=== PATIENT | male | born 1960 | race Caucasian/White ===

== ENCOUNTER 2020-04-11 14:37 | Inpatient (IN) | payer MEDICAID ==
[~2020-04-11] VITALS: Ht 175.3 cm; Wt 104.4 kg
[2020-04-11] VITALS (12 sets, daily range): BP systolic 122–186; BP diastolic 88–121; BMI 25.2
--- NOTE | 2020-04-11 14:37 | NUR ---
ARRIVED BIB, IMMED TO CT. THEN RTND TO T3. A/OX3. SPEECH SLIGHTLY SLURRED AND LEFT FACIAL DROOP NOTED. FSBS= 112 MG/DL
[2020-04-11] MEDS ORDERED: DOLOPHINE HCL5 MG PO (14:51)
[2020-04-11] MEDS ORDERED: KLONOPIN1 MG PO (14:51)
[2020-04-11] MEDS ORDERED: OXYCONTIN10 MG PO (14:52)
[2020-04-11] MEDS ORDERED: RESTORIL15 MG PO (14:52)
[2020-04-11 14:56] LABS: BASOPHILS 0.1 % (0-2); EOSINOPHILS 0.5 % (0-7); HEMATOCRIT 43.8 % (42.0-54.0); HEMOGLOBIN 14.3 g/dL (13.5-17.5); IMMATURE GRANULOCYTES 0.2 % (0-5); LYMPHOCYTES 17.8 % (15-50); MCH 29.2 pg (26.0-34.0); MCHC 32.6 g/dL (31.0-37.0); MCV 89.6 fL (80.0-100.0); MEAN PLATELET VOLUME 9.4 fL (7.4-10.4); MONOCYTES 6.1 % (2-11); NEUTROPHILS 75.3 % (40-80); PLATELET COUNT 421 10x3/uL (130-400); RBC 4.89 10x6/uL (4.20-6.10); RDW 13.3 % (11.5-14.5)
[2020-04-11 15:08] LABS: CALC OSMOLALITY 281 mosm/kg (275-300); CALCIUM 9.6 mg/dL (8.5-10.1); CARBON DIOXIDE 26.4 mmol/L (21.0-32.0); CHLORIDE - SERUM 103 mmol/L (98-107); CREATININE - SERUM 1.3 mg/dL (0.6-1.3); GLUCOSE 110 mg/dL (74-106); POTASSIUM - SERUM 3.7 mmol/L (3.5-5.1); SODIUM 141 mmol/L (136-145); UREA NITROGEN 12 mg/dL (7-18); eGFR NON AFRICAN AMERICAN 60 mL/min (90-120)
[2020-04-11 15:14] LABS: APTT 30.7 SECONDS (22.8-39.4); INR 1.01 (0.85-1.17); PROTIME 13.2 SECONDS (11.6-15.0)
[2020-04-11 15:29] LABS: ALKALINE PHOSPHATASE 119 U/L (30-120); ALT (SGPT) 32 U/L (10-68); BILIRUBIN - TOTAL 0.29 mg/dL (0.2-1.3); CKMB 6.2 U/L (0.0-3.6); CREATINE KINASE 557 UL (21-232); MAGNESIUM - SERUM 1.9 mg/dL (1.8-2.4); PROTEIN - SERUM 8.1 g/dL (6.4-8.2); THYROID STIMULATING HORMONE 0.74 uIU/mL (0.36-3.74); TROPONIN-I < 0.017 ng/mL (0.000-0.060)
--- NOTE | 2020-04-11 17:09 | NUR ---
PT C/O BACK PAIN REQUESTING HIS HOME MEDS: OXYCODONE AND METHADONE. DR CARRIE DEL VALLE
--- NOTE | 2020-04-11 17:14 | NUR ---
DR BUTLER CALLED BACK: NEW ORDERS RCVD
--- NOTE | 2020-04-11 17:45 | NUR ---
REPORT TO MARCELO HEADLEY
--- NOTE | 2020-04-11 17:55 | NUR ---
ADMIT TO ROOM # CVICU 08, CONDITION STABLE
[2020-04-11] MEDS ORDERED: ZANAFLEX4 MG PO (18:02)
[2020-04-11] MEDS ORDERED: AMBIEN5 MG PO (18:03)
[2020-04-11] MEDS ORDERED: PAXIL20 MG PO (18:04)
--- NOTE | 2020-04-11 18:14 | NUR ---
1800 PT RECIEVED TO ROOM ALERT AND ORIENTED LUE AND LLE FLACCID, UNABLE TO MOVE BUT STATES ABLE TO FEEL STIMULI, L SIDE OF FACE DROOPING NOTED, DENIES ALL NEEDS, ATTACHED TO MONITORING EQUIPMENT, NS75 ML/HR INFUSING, AT BEDSIDE AND SECURITY CODE PROVIDED, CALL LIGHT WITHIN REACH
--- NOTE | 2020-04-11 19:30 | NUR ---
PT A/OX4, SPOUSE PRESENT AT BEDSIDE, LEFT SIDE FACIAL DROOP NOTED, LEFT ARM AND HAND FLACCID, LEFT LEG WEAK, USES URINAL, LEFT FA PIV INTACT WITH IVF'S INFUSING, PT ASKING WHEN DR SETHI WILL BE HERE, NO DISTRESS NOTED
--- NOTE | 2020-04-11 23:10 | NUR ---
DR SETHI @ BEDSIDE TALKING WITH PT
[2020-04-12] VITALS (14 sets, daily range): BP systolic 94–163; BP diastolic 43–103; BMI 25.5
--- NOTE | 2020-04-12 02:27 | NUR ---
PT SLEEPING SOUNDLY WITH NO DISTRESS NOTED, AROUSES EASILY, VITALS STABLE
[2020-04-12 06:24] LABS: ALBUMIN 3.6 g/dL (3.4-5.0); ANION GAP 8.6 mmol/L (8-16); BILIRUBIN - TOTAL 0.5 mg/dL (0.2-1.3); CALCIUM 8.5 mg/dL (8.5-10.1); CARBON DIOXIDE 30.9 mmol/L (21.0-32.0); CREATININE - SERUM 1.1 mg/dL (0.6-1.3); POTASSIUM - SERUM 3.5 mmol/L (3.5-5.1); PROTEIN - SERUM 7.2 g/dL (6.4-8.2)
[2020-04-12 06:25] LABS: BASOPHILS 0.2 % (0-2); EOSINOPHILS 2.2 % (0-7); HEMATOCRIT 42.9 % (42.0-54.0); HEMOGLOBIN 13.7 g/dL (13.5-17.5); IMMATURE GRANULOCYTES 0.3 % (0-5); MCH 28.9 pg (26.0-34.0); MCHC 31.9 g/dL (31.0-37.0); MCV 90.5 fL (80.0-100.0); MEAN PLATELET VOLUME 9.4 fL (7.4-10.4); MONOCYTES 9.1 % (2-11); NEUTROPHILS 57.2 % (40-80); PLATELET COUNT 348 10x3/uL (130-400); RBC 4.74 10x6/uL (4.20-6.10); RDW 13.6 % (11.5-14.5)
--- NOTE | 2020-04-12 07:00 | NUR ---
REPORT RECIEVED FROM THE OFF GOING RN. SEE ASSESSMENT IN THE PTS FLOW SHEET. PT A&O X4. SLURRED SPEACH NOTED. LEFT SIDED PARESIS NOTED. LEFT FACIAL DROOP AND LEFT TOUNGE DEVIATION NOTED. PT BARLEY WIGGLES LEFT TOES ON COMMANDS AND UNABLE TO MOVE LEFT HAND ON COMMAND. WHENEVER TALKING WITH THE PT, PT WILL YAWN AND PT PICKS UP HIS LEFT HAND WITHOUT HIM KNOWING IT. PT ABLE TO FEEL THE LEFT SIDE OF HIS BODY. VSS. CALL LIGHT IN REACH. WILL CONT POC.
[2020-04-12 07:05] LABS: WBC 6.3 10x3/uL (4.8-10.8)
--- NOTE | 2020-04-12 08:24 | NUR ---
DR PARK BRIM STIFFENER IN THE UNIT. ST EVALUATION.
--- NOTE | 2020-04-12 09:34 | NUR ---
ASPIRATION PRECAUTIONS IMPLEMENTED. HOB ELEVATED 90 DEGREES AND PO WATER THICKEN. PT TOOK PO FLUIDS AND PILLS WITH NO S/SX OF DYSPAGIA NOTED. NO COUGHING NOTED. WILL KEEP NPO UNTIL ST NICOLASA PT.
--- NOTE | 2020-04-12 10:23 | NUR ---
SPEACH THERAPY IN THE PTS ROOM.
--- NOTE | 2020-04-12 11:13 | NUR ---
OCCUPATION THEARPY AT THE PTS BEDSIDE.
--- NOTE | 2020-04-12 11:29 | NUR ---
PT ASKED IF HE COULD USE HIS VAP OUTSIDE. I EXPLAINED TO THE PATIENT THAT HE IS IN THE ICU AND IT IS INAPPROPRIATE TO VAP IN THE UNIT AND THAT I AM NOT ABLE TO WHEEL HIM OUTSIDE. PT UNDERSTANDS.
--- NOTE | 2020-04-12 12:10 | NUR ---
ASPIRATION PRECAUTIONS TAKEN. HOB ELEAVATED TO 90 DEGREES. PT TOLERATING MECH SOFT AND HONEY THICK LIQUIDS WELL WITH NO DYSPAGIA NOTED. VSS. CALL LIGHT IN REACH. WILL CONT OPC.
--- NOTE | 2020-04-12 12:27 | NUR ---
DR OLSEN AT THE PTS [facility]. OK TO TRANSFER OUT OF THE UNIT BY HIS STANDPOINT.
--- NOTE | 2020-04-12 15:15 | NUR ---
1300 ASKED FPR A DRINK REMINDED HIM HE IS REQUIRED TO DRINK HONEY THICK LIQUIDS FIXED HIM A GLASS OF THICKENED WATER
--- NOTE | 2020-04-12 15:16 | NUR ---
1400 VISITING AT BEDSIDE
--- NOTE | 2020-04-12 15:17 | NUR ---
1500 CALL FOR PAIN MED WITH BACK PAIN 04/14 GAVE PATIENT HIS SCHEDULED KLONIPIN AND OXYCONTIN PO
[2020-04-12 17:12] LABS: UDS - AMPHET NEGATIVE QUAL (NEGATIVE); UDS - BARB NEGATIVE QUAL (NEGATIVE); UDS - BENZO NEGATIVE QUAL (NEGATIVE); UDS - COCAINE NEGATIVE QUAL (NEGATIVE); UDS - OPIATE POSITIVE QUAL (NEGATIVE); UDS - PCP NEGATIVE QUAL (NEGATIVE); UDS - THC NEGATIVE QUAL (NEGATIVE)
--- NOTE | 2020-04-12 23:25 | NUR ---
ESE ENRIQUEZ APRN PAGED, RETURNED CALL. REQUEST TO START PT AMBIEN WITH HE TAKES AT HOME. PT RECEIVED SCHEDULED MEDICATIONS INCLUDING KLONOPIN, METHADONE, AND OXYCONTIN. PT STATES HE NEEDS SOMETHING TO HELP HIM SLEEP AND WAS GETTING ANXIOUS. ESE STATES THAT SHE NEEDED TO VARIFY REQUEST WITH DR OLSEN, ORDER RECEIVED. MEDICATION GIVEN, TOLERATED WELL. IV TO RIGHT FOREARM REMOVED DUE TO COMPLAINT OF SORENESS AND REDNESS. CALL LIGHT IN REACH. WILL CONTINUE TO OBSERVE.
[2020-04-13] VITALS (18 sets, daily range): BP systolic 130–199; BP diastolic 9–124; Ht 175.3 cm; Wt 104.4 kg
--- NOTE | 2020-04-13 07:00 | NUR ---
REPORT RECEVIED FROM THE OFF GOING RN. TRANSFERED TO ROOM 2308. PT DENIES PAIN. PT ABLE TO RAISE HIS LEFT ARM AND ABLE TO MOVE HIS LEFT LEG. 3/5 LLE 1/ LUE. PT ABLE TO MOVE RIGHT SIDE WITH NO ISSUES. TOUNGE DEVIATES TO THE LEFT. LEFT FACIAL DROOP NOTED. SLURRED SPEACH NOTED. VSS AT THIS TIME. CALL LIGHT IN REACH. WILL CONT POC.
--- NOTE | 2020-04-13 07:37 | NUR ---
PT UP TO WHEELCHAIR FOR TRANSFER TO ICU. LEFT SIDE WEAKNESS NOTED WITH TRANSFER. PT IN WHEELCHAIR WITH PERSONAL ITEMS IN REACH. PT TOLD THAT NURSE WOULD COME AND GET HIM. PT ATTEMTED TO MOVE WHEELCHAIR AND GOT TO DOORWAY AND FELL FORWARD. DENIES PAIN/INJURY. PT ASSISTED BACK TO WHEELCHAIR. CONTINUES TO DENY INJURY FROM FALL, JUST COMPLAINS OF PAIN DUE TO CHRONIC BACK PAIN. STAFF WITH DR. SETHI WAS IN TO SEE PT AND WAS INFORMED AND ASSESSED PT.
--- NOTE | 2020-04-13 09:09 | NUR ---
BP SBP OVER 200. DR GALI DEL VALLE. GIVE 20 HYDRALAZINE IV NOW, WAIT 20 MINUTES AND GIVE 5MG PO NORVAC AND 20MG PO LISINOPRIL.
--- NOTE | 2020-04-13 09:52 | NUR ---
PT CO HEADACHE. DR BUTLER, IN THE UNIT. STAT HEAD CT WITHOUT CONTRAST
--- NOTE | 2020-04-13 10:14 | NUR ---
HEAD CT REPORTED TO DR BUTLER.
--- NOTE | 2020-04-13 10:45 | NUR ---
PT COMPLAINING OF INABILITY TO URINATE. MULTIPLE TIMES ATTEMPTED TO VOID. DR BUTLER NOTIFIED. PLACE FC. 16 FIJIAN INSERTED WITH CLEAR, YELLOW URINE RETURNED. CALL LIGHT IN REACH. WILL CONT POC
--- NOTE | 2020-04-13 10:50 | NUR ---
PT'S BED IN THE LOWEST POSITION AND CALL LIGHT IN REACH. HEARD PATIENT FROM THE ROOM YELL AND HEARD A THUD AND THEN THE BED ALARM WENT OFF. WENT IN TO THE PATIENTS ROOM IMMIDIATLY AND FOUND THE PT LYING ON THE LEFT SIDE OF THE BED HEAD ON THE FLOOR. "IM SORRY, I HIT MY HEAD". PT ASSISTED BACK INTO BED AND NEURO EXAM COMPLETED. PT REMAINS AT HIS BASELINE. DR TALBERT NOTIFIED. OK FOR SOFT RESTRAINTS AND TO CALL DR SETHI. DR SETHI CALLED AND NOTIFIED. HE STATED A HEAD CT WAS NOT NECESSARY AT THIS TIME. WHENEVER ASKED THE PATIENT WHY HE WAS CLIMBING OOB, HE STATED "I DONT KNOW".
--- NOTE | 2020-04-13 14:30 | NUR ---
PT VOMITED. NO S/SX OF ASPIRATION NOTED. PRN ZOFRAN GIVEN. SEE MAR. FULL CHD BATH GIVEN. DENIES PAIN/NAUSEA/VOMITING AT THIS TIME. WILL CONT POC.
--- NOTE | 2020-04-13 14:53 | NUR ---
OT NOTE: PT COMPLETED SUPINE TO SIT WITH MAX A. PT COMPLETED EOB SITTING WITH MIN A. PT EXHIBITED LATERAL L LEAN. PT REQUIRED SET UP FOR FACE HYGIENE. [phone] THANK YOU,SHASHA GAMINO
--- NOTE | 2020-04-13 15:00 | NUR ---
PT REASSESSMENT COMPLETED. SEE FLOW SHEET. PT VSS. DENIES REEVES AT THIS TIME. WILL CONT POC.
--- NOTE | 2020-04-13 18:00 | NUR ---
PT REQUESTED PAIN MEDICATION FOR BACK PAIN. PRN MORPHINE GIVEN. SEE DEC.
--- NOTE | 2020-04-13 19:45 | NUR ---
ASSESSMENT PER FLOW SHEET, VS CONTINUE, IV IN LEFT FA, COVERED WITH DRESSING TO KEEP PT FROM PULLING IV OUT, INFUSING NS VIA PUMP AT 125 ML/HR, FRYE CATH IN PLACE, DRAINING DARK YELLOW URINE, PT C/O REEVES, INFORMED PT THAT I WILL ADM PAIN MED WHEN DUE, PT VERBALIZES UNDERSTANDING, PT REQUESTS AMBIEN, INFORMED PT THAT IT IS ORDERED AND I WILL ADM IT AROUND 9PM, RESTRAINTS STILL IN PLACE, PT DENIES NEEDS AT THIS TIME, FALL PRECAUTIONS IN PLACE
--- NOTE | 2020-04-13 20:20 | NUR ---
PT HEAD WOOD GRINDER LIGHT, PT REQUESTING MEDS, INFORMED PT THAT I WILL BE IN AROUND 9PM TO ADM, PT STATES "I DON'T MEAN TO BOTHER YOU, IT'S JUST I GET ANXIOUS AT TIMES AND I FEEL LIKE I NEED TO SLEEP. I HAVENT SLEPT MUCH IN 2 DAY", PT
--- NOTE | 2020-04-13 21:06 | NUR ---
PT AWAKE, ADM 2100 MEDS PO PER MD ORDERS, SEE EMAR, PT OSWALDO WELL IN SWALLOWING THE PILLS, PT DENIES NEEDS, FALL PRECAUTIONS IN PLACE
--- NOTE | 2020-04-13 22:30 | NUR ---
PT GREY TENDER LIGHT, PT STATES "DID YOU GIVE ME THAT AMBIEN?", INFORMED PT THAT I DID, TOLD PT TO TRY AND RELAX, AND THAT I WAS GOING TO CLOSE HIS DOOR SLIGHTLY TO KEEP THE LIGHT FROM SHINING IN ON HIM, PT STATES "OK, MAYBE THAT WILL HELP", OBTAINED TEMP, PT DENIES FURTHER NEEDS
--- NOTE | 2020-04-13 23:05 | NUR ---
PT RESTING WITH EYES CLOSED, RESP QUIET, NO DISTRESS NOTED, LEFT UNDISTURBED AT THIS TIME, FALL PRECAUTIONS IN PLACE
[2020-04-14] VITALS (10 sets, daily range): BP systolic 123–161; BP diastolic 73–93
--- NOTE | 2020-04-14 00:23 | NUR ---
PT RESTING WITH EYES CLOSED, RESP QUIET, NO DISTRESS NOTED, LEFT UNDISTURBED AT THIS TIME, FALL PRECAUTIONS IN PLACE
--- NOTE | 2020-04-14 01:44 | NUR ---
NEW BAG OF NS HUNG VIA PUMP INFUSING AT 75ML/HR PER MD ORDERS, SEE EMAR
--- NOTE | 2020-04-14 03:00 | NUR ---
ASSESSMENT PER FLOW SHEET
--- NOTE | 2020-04-14 04:32 | NUR ---
PT RESTING WITH EYES CLOSED, RESP QUIET, NO DISTRESS NOTED, LEFT UNDISTURBED AT THIS TIME, FALL PRECAUTIONS IN PLACE
--- NOTE | 2020-04-14 06:01 | NUR ---
PT RESTING WITH EYES CLOSED, RESP QUIET, NO DISTRESS NOTED, LEFT UNDISTURBED AT THIS TIME, FALL PRECAUTIONS IN PLACE
--- NOTE | 2020-04-14 07:45 | NUR ---
ASSESSMENT COMPLETED. ALERT AND ORIENTED TO PERSON, PLACE AND TIME. LT FA PIV, SITE WITHOUT REDNESS OR EDEMA WITH NS @75CC/HR VIA PUMP. FRYE CATH INTACT WITH CLEAR YELLOW URINE IN BAG. PPP. SR ON THE MONITOR. PT CURRENTLY IN RESTRAINTS, SEE RESTRAINT DOCUMENTAITON. DENIES ANY NEEDS AT THIS TIME.
--- NOTE | 2020-04-14 10:00 | NUR ---
PT MOVED TO ROOM 2304 TO BE CLOSER TO THE NURSES DESK. RESTRAINTS REMOVED. WILL CONT TO MONITOR CLOSELY. SR ON THE MONITOR.
--- NOTE | 2020-04-14 10:43 | NUR ---
Nutrition follow-up: Pt slept during breakfast today. Receiving a regular diet and upgraded to thin liquids 04/13 Pt noted with some vomiting 04/13; pt also fell and hit head Wt: 173# Will continue to provide food choices and honor food preferences. Will offer nutritional supplements. RDN following.
--- NOTE | 2020-04-14 11:05 | NUR ---
BEDSIDE REPORT RECEIVED.RESTING QUIETLY WITH EYES CLOSED.NO SIGNS OF DISTRESS.CL IN EASY REACH,BED IN LOW POSITION AND SIDE RAILS UP FOR SAFETY.
--- NOTE | 2020-04-14 12:30 | NUR ---
C/O HEADACHE RATED 4 ON 1-10 SCALE.TYLENOL 325MG PO GIVEN.
--- NOTE | 2020-04-14 15:03 | NUR ---
OT NOTE: PT COMPLETED BED MOB WITH MOD X2. PT COMPLETED ADL MOB WITH MOD A X2. PT RUE AROM AND LUE PROM TOLERATED. [phone] THANK YOU,SHASHA GAMINO
--- NOTE | 2020-04-14 15:27 | NUR ---
AROUSED FROM SLEEP FOR MEDS.DENIES PAIN.
--- NOTE | 2020-04-14 19:40 | NUR ---
PT DEVELOPMENT MGR LIGHT, PT REQUESTING MEDS, INFORMED PT THAT I WILL ADM THEM AT 9PM, PT VERBALIZES UNDERSTANDING, DENIES FURTHER NEEDS AT THIS TIME
--- NOTE | 2020-04-14 20:05 | NUR ---
ASSESSMENT PER FLOW SHEET, VS CONTINUE, TEMP OBTAINED, FRYE CATH INTACT, DENIES BM OR FLATUS, PT C/O BACK PAIN, INFORM PT THAT I WILL BE BACK IN AROUND 9PM TO ADM MEDS, PT VERBALIZES UNDERSTANDING, SCD'S NOTED TO BE TURNED OFF, MACHINE TURNED ON AND WORKING PROPERLY, PT DENIES NEEDS AT THIS TIME, BED IN LOW POSIITON, SIDE RAILS X 2, CALL LIGHT IN REACH
--- NOTE | 2020-04-14 21:08 | NUR ---
PT AWAKE, ADM 2100 MEDS PER MD ORDERS, SEE EMAR, PT REQUESTED AND SERVED FRESH H20, DENIES FURTHER NEEDS
--- NOTE | 2020-04-14 22:11 | NUR ---
PT HEALTH EDUCATION COORDINATOR LIGHT, THIS RN TO ROOM, PT STATES "I'M SORRY, I DIDN'T MEAN TO HIT THE LIGHT", PT DENIES NEEDS OR PAIN AT THIS TIME, BED IN LOW POSITION, SIDE RAILS X 2, CALL LIGHT IN REACH
--- NOTE | 2020-04-14 23:40 | NUR ---
SHIFT REASSESSMENT DONE, SEE FLOW SHEET
--- NOTE | 2020-04-15 00:30 | NUR ---
PT SUPERVISOR TREE TRIMMING LIGHT, REPORTS THAT TYLENOL DID NOT HELP, INFORMED PT THAT THE MORPHINE WAS D/C'ED, PT REQUESTS THAT I CALL THE DOCTOR, INFORMED PT THAT I WILL TALK TO THE CHARGE NURSE SOON SHE IS FREE, PT VERBALIZES UNDERSTANDING, DENIES FURTHER NEEDS
--- NOTE | 2020-04-15 01:00 | NUR ---
SPOKE TO YUNIOR DRILLER OPERATOR NURSE, INFORMED HER OF MORPHINE, RECEIVED ORDER FOR MORPHINE, SEE ORDERS
--- NOTE | 2020-04-15 01:25 | NUR ---
PT AWAKE, SALINE LOCK FLUSHED, ADM MORPHINE DILUTED IN 5MLS OF NS, SIVP PER MD ORDERS, SEE EMAR, SALINE LOCK FLUSHED, PT DENIES FURTHER NEEDS, BED IN LOW POSITION, SIDE RAILS X 2, CALL LIGHT IN REACH
--- NOTE | 2020-04-15 02:35 | NUR ---
PT RESTING WITH EYES CLOSED, RESP QUIET, NO DISTRESS NOTED, LEFT UNDISTURBED AT THIS TIME
--- NOTE | 2020-04-15 03:22 | NUR ---
PT RESTING WITH EYES CLOSED, RESP QUIET, NO DISTRESS NOTED, LEFT UNDISTURBED AT THIS TIME, BED IN LOW POSITION, SIDE RAILS X 2, CALL LIGHT IN REACH
--- NOTE | 2020-04-15 06:22 | NUR ---
CALLED MED SURGE, REPORT TO MARCELO JEWELL
--- NOTE | 2020-04-15 06:41 | NUR ---
PT TRANSFERRED VIA BED TO [facility] ROOM 2205, PT AMB, GAIT SLIGHTLY UNSTEADY, WITH ASSISTANCE PER THIS RN AND KANDIS, RN, PT TO BED, PT ORIENTED TO ROOM, BED IN LOW POSITION, SIDE RAILS X 2, CALL LIGHT IN REACH, ALL BELONGINGS WITH PT
[2020-04-15 08:51] VITALS: BP 122/80
[2020-04-15 10:33] LABS: HEMATOCRIT 40.4 % (42.0-54.0); HEMOGLOBIN 13.4 g/dL (13.5-17.5); LYMPHOCYTES 21.1 % (15-50); MCH 29.2 pg (26.0-34.0); MCHC 33.2 g/dL (31.0-37.0); MEAN PLATELET VOLUME 9.1 fL (7.4-10.4); NEUTROPHILS 70.9 % (40-80); PLATELET COUNT 314 10x3/uL (130-400); RBC 4.59 10x6/uL (4.20-6.10); RDW 13.1 % (11.5-14.5); WBC 6.9 10x3/uL (4.8-10.8)
[2020-04-15 11:18] LABS: ALBUMIN 3.2 g/dL (3.4-5.0); ANION GAP 9.5 mmol/L (8-16); BILIRUBIN - TOTAL 0.38 mg/dL (0.2-1.3); CALCIUM 8.7 mg/dL (8.5-10.1); CARBON DIOXIDE 29.1 mmol/L (21.0-32.0); CREATININE - SERUM 1.1 mg/dL (0.6-1.3); POTASSIUM - SERUM 3.6 mmol/L (3.5-5.1); PROTEIN - SERUM 6.4 g/dL (6.4-8.2)
[2020-04-15 14:02] VITALS: BP 116/72
[2020-04-15 17:09] VITALS: BP 135/74
[2020-04-15 20:00] VITALS: BP 148/78
--- NOTE | 2020-04-16 04:00 | NUR ---
I have reviewed this patient and I concur with the Shift Assessment completed by the Licensed Practical Nurse today this shift.
[2020-04-16 05:40] LABS: HEMATOCRIT 36.7 % (42.0-54.0); HEMOGLOBIN 12.5 g/dL (13.5-17.5); LYMPHOCYTES 22.3 % (15-50); MCH 29.8 pg (26.0-34.0); MCHC 34.1 g/dL (31.0-37.0); MCV 87.6 fL (80.0-100.0); MEAN PLATELET VOLUME 9.6 fL (7.4-10.4); NEUTROPHILS 70.9 % (40-80); PLATELET COUNT 301 10x3/uL (130-400); RBC 4.19 10x6/uL (4.20-6.10); RDW 13.2 % (11.5-14.5); WBC 8.5 10x3/uL (4.8-10.8)
[2020-04-16 05:59] LABS: ALKALINE PHOSPHATASE 83 U/L (30-120); ALT (SGPT) 16 U/L (10-68); BILIRUBIN - TOTAL 0.42 mg/dL (0.2-1.3); CALC OSMOLALITY 274 mosm/kg (275-300); CALCIUM 7.7 mg/dL (8.5-10.1); CARBON DIOXIDE 25.3 mmol/L (21.0-32.0); CHLORIDE - SERUM 102 mmol/L (98-107); GLUCOSE 92 mg/dL (74-106); POTASSIUM - SERUM 3.1 mmol/L (3.5-5.1); PROTEIN - SERUM 6.2 g/dL (6.4-8.2); SODIUM 138 mmol/L (136-145); UREA NITROGEN 11 mg/dL (7-18); eGFR NON AFRICAN AMERICAN 82 mL/min (90-120)
[2020-04-16 08:59] VITALS: BP 141/89
--- NOTE | 2020-04-16 09:00 | NUR ---
ALERT AND ORIENTED X 3. HEMIPLAGIA NOTED TO LEFT SIDE WITH NO PERIPHERAL EDEMA NOTED. BED ALARM INTACT AND ENCOURAGED TO USE CALL LIGHT FOR ASSIST. REQUIRES 1 PERSON ASSIST WITH TRANSFERS. INCREASE MOBILITY NOTED TO LLE.
--- NOTE | 2020-04-16 11:35 | NUR ---
REHAB PRESCREENING Rehab referral received and chart reviewed. This patients provider does not have a rehab benefit. Thank you for this referral! Cheryl Shrestha, FLOOR SERVICE WORKER [facility]
[2020-04-16 12:52] VITALS: BP 156/84
[2020-04-16 17:04] VITALS: BP 114/66
[2020-04-16 20:00] VITALS: BP 136/76
--- NOTE | 2020-04-16 21:30 | NUR ---
LLYING QUEITLY WITH NO DISTESS NOTED. LEFT ARM FLACCID. SL TO LFA INTACT WITHOUT REDNESS OR EDEMA NOTED. CL IN REACH
[2020-04-17 04:00] VITALS: BP 123/78
[2020-04-17 06:20] LABS: BASOPHILS 0.1 % (0-2); EOSINOPHILS 9.6 % (0-7); HEMATOCRIT 36.9 % (42.0-54.0); HEMOGLOBIN 12.2 g/dL (13.5-17.5); IMMATURE GRANULOCYTES 2.3 % (0-5); LYMPHOCYTES 23.6 % (15-50); MCH 29.1 pg (26.0-34.0); MCHC 33.1 g/dL (31.0-37.0); MCV 88.1 fL (80.0-100.0); MEAN PLATELET VOLUME 9.1 fL (7.4-10.4); MONOCYTES 7.7 % (2-11); NEUTROPHILS 56.7 % (40-80); PLATELET COUNT 334 10x3/uL (130-400); RBC 4.19 10x6/uL (4.20-6.10); RDW 13.2 % (11.5-14.5); WBC 7.4 10x3/uL (4.8-10.8)
[2020-04-17 06:54] LABS: ALBUMIN 3.1 g/dL (3.4-5.0); ALKALINE PHOSPHATASE 93 U/L (30-120); ALT (SGPT) 16 U/L (10-68); BILIRUBIN - TOTAL 0.52 mg/dL (0.2-1.3); CALC OSMOLALITY 274 mosm/kg (275-300); CARBON DIOXIDE 26.1 mmol/L (21.0-32.0); CHLORIDE - SERUM 103 mmol/L (98-107); GLUCOSE 100 mg/dL (74-106); POTASSIUM - SERUM 3.2 mmol/L (3.5-5.1); PROTEIN - SERUM 6.6 g/dL (6.4-8.2); SODIUM 138 mmol/L (136-145); UREA NITROGEN 11 mg/dL (7-18); eGFR NON AFRICAN AMERICAN 82 mL/min (90-120)
--- NOTE | 2020-04-17 07:30 | NUR ---
PATIENT SLEEPING ON RIGHT SIDE AT THIS TIME. BED ALARM ON. REPORT GIVEN. CL IN REACH. TM
[2020-04-17 09:05] VITALS: BP 144/87
[2020-04-17 13:06] VITALS: BP 144/83
[2020-04-17 18:04] VITALS: BP 113/63
[2020-04-17 20:00] VITALS: BP 161/92
[2020-04-18 04:00] VITALS: BP 140/84
[2020-04-18 05:34] LABS: ALBUMIN 3.1 g/dL (3.4-5.0); ALKALINE PHOSPHATASE 92 U/L (30-120); ALT (SGPT) 16 U/L (10-68); BILIRUBIN - TOTAL 0.41 mg/dL (0.2-1.3); CALC OSMOLALITY 274 mosm/kg (275-300); CALCIUM 8.8 mg/dL (8.5-10.1); CARBON DIOXIDE 23.7 mmol/L (21.0-32.0); CHLORIDE - SERUM 104 mmol/L (98-107); CREATININE - SERUM 0.9 mg/dL (0.6-1.3); GLUCOSE 94 mg/dL (74-106); PHOSPHOROUS 3.2 mg/dL (2.5-4.9); PROTEIN - SERUM 6.7 g/dL (6.4-8.2); SODIUM 138 mmol/L (136-145); UREA NITROGEN 9 mg/dL (7-18); eGFR NON AFRICAN AMERICAN > 90 mL/min (90-120)
[2020-04-18 05:36] LABS: HEMATOCRIT 38.5 % (42.0-54.0); HEMOGLOBIN 12.8 g/dL (13.5-17.5); MCH 29.3 pg (26.0-34.0); MCHC 33.2 g/dL (31.0-37.0); MCV 88.1 fL (80.0-100.0); NEUTROPHILS 65.2 % (40-80); PLATELET COUNT 395 10x3/uL (130-400); RBC 4.37 10x6/uL (4.20-6.10); RDW 13.4 % (11.5-14.5); WBC 8.5 10x3/uL (4.8-10.8)
--- NOTE | 2020-04-18 08:00 | NUR ---
HE IS C/O OF NOT SLEEPING, AND WANTING MORE PAIN MEDICATIONS. HE IS ALERT. HE CAN NOT MOVE HIS LEFT ARM, HE CAN MOVE HIS LEFT FOOT. THE CALL LIGHT IS WITHIN REACH.
[2020-04-18 09:35] VITALS: BP 152/92
--- NOTE | 2020-04-18 12:53 | NUR ---
OT NOTE: CONTINUES WITH L UE HEMIPLEGIA; NO TRACE OF MOVEMENT IN L UE; MILD SUBLUXATION NOTED. BED MOB WITH MIN ASSIST. PT VERY FRUSTRATED WITH BEING UNABLE TO MOVE L UE. EXPLAINED AND PERFORMED WT BEARING ACT WITH LUE WITH MAX ASSIST; SIT TO STAND WITH MIN ASSIST WITH UE SUPPORT; FAIR- STANDING BALANCE WITH UE SUPPORT. PT WILL REQUIRE IP REHAB IN ORDER TO IMPROVE WITH SAFETY, ADLS, AND MOBILTY ABIGAIL GONZALEZ, OTR/L [phone]
--- NOTE | 2020-04-18 14:11 | MORECARE ---
CASE MANAGEMENT DISCHARGE SUMMARY PATIENT: JACKIE BROWN UNIT: [id number] ADM DATE: 04/11/20 AGE: 59 : 64 SEX: M ROOM/BED: D.2206 AUTHOR: VENESSA ALVARADO PHYSICIAN: REFERRING PHYSICIAN: YUDI BUTLER MD DATE OF SERVICE: 04/18/20 Discharge Plan Patient Name: JACKIE BROWN Facility: [facility]:[place] : 1960 Planned Disposition: Inpatient Rehab Anticipated Discharge Date: Discharge Date: Expected LOS: Initial Reviewer: [email or web address] Initial Review Date: 04/11/2020 Generated: 04/18/20 3:11 pm Comments DCP- Discharge Planning Updated by [email or web address]: Alicia Saxena on 04/18/20 1:[address] Patient Name: JACKIE BROWN Admission Status: ER Accout number: [id number] Admission Date: 04-11-2020 : 1960 Admission Diagnosis:CEREBRAL INFARCTION, UNSPECIFIED Attending: FAUSTINA Current LOS: 7 Anticipated DC Date: Planned Disposition: Inpatient Rehab Primary Insurance: MEDICAID [place] PENDING Discharge Planning Comments: CM met with patient & to complete initial dc planning assessment. CM educated patient on the CM role and verbal consent given by patient to complete assessment. Patient lives at home with his where he was independent with his care. At discharge patient would like to get rehab and feels this is a safe discharge. CM discussed availability of home health, rehab services, and medical equipment. He is [facility] approved, I have started the referral process to Monserrat at [facility]. He also will need a PCP with [facility]. 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 I have estrada formerly [facility] office and spoke to Alethea to have Mary call me back to make sure he in in the system correctly. Patients is Idalia ( [phone]) Patient denied known discharge needs at this time. CM will continue to follow and will assist as needed with dc plans/needs. Online Marketing Specialist: Alicia Saxena DCP- Discharge Planning Updated by [email or web address]: Alicia Saxena on 04/18/20 8:[address] REFERRAL SENT TO [facility] DCPIA - Discharge Planning Initial Assessment Updated by [email or web address]: Alicia Saxena on 04/18/20 2:04 pm * Is the patient Alert and Oriented? Yes * How many steps to enter\exit or inside your home? * PCP [place] * Pharmacy [facility] * Preadmission Environment Home with Family * ADLs Independent * Equipment None * List name and contact numbers for known caregivers / representatives who currently or will assist patient after discharge: IDALIA BROWN [phone] * Verbal permission to speak to the caregivers and representatives has been obtained from the patient. N/A * Community resources currently utilized None * Additional services required to return to the preadmission environment? Yes * Can the patient safely return to the preadmission environment? No * Has this patient been hospitalized within the prior 30 days at any hospital? No External Providers External Provider: [facility] Contact Date: Service Request Date: Service Type: Resolution: Reviewer: Comments: Coverage Notice Reviewer: [email or web address] - Alicia Saxena Notice Issued Date-Time: 04/18/2020 13:40 Notice Type: Patient Choice Letter Notice Delivered To: Patient Relationship to Patient: Nuclear Medicine Supervisor Name: Delivery Method: HAND - Hand Delivered Yahaira Days: Prior Verbal Notification: Recipient Understood Notice: Yes Recipient Signature: Yes Med Rec Note Co-signed by Attending: Coverage Notice Comment: [email or web address] Patient Name: JACKIE BROWN Page [phone] at 1411 All edits/amendments must be made on the electronic document DICTATION DATE: 04/18/201410 GREEN MEAT GRADER: ZACH 04/18/20 141 RPT#: [id number] DC DATE: STATUS: ADM IN [facility] [address] [place] [address] END OF REPORT
--- NOTE | 2020-04-18 14:19 | NUR ---
REMOVED HIS FRYE.
--- NOTE | 2020-04-18 17:24 | MORECARE ---
CASE MANAGEMENT DISCHARGE SUMMARY PATIENT: JACKIE BROWN UNIT: [id number] ADM DATE: 04/11/20 AGE: 59 : 64 SEX: M ROOM/BED: D.2206 AUTHOR: JENNYDOC PHYSICIAN: REFERRING PHYSICIAN: YUDI BUTLER MD DATE OF SERVICE: 04/18/20 Discharge Plan Patient Name: JACKIE BROWN Facility: [facility]:[place] : 1960 Planned Disposition: Inpatient Rehab Anticipated Discharge Date: Discharge Date: Expected LOS: Initial Reviewer: [email or web address] Initial Review Date: 04/11/2020 Generated: 04/18/20 6:23 pm Comments DCP- Discharge Planning Updated by [email or web address]: Alicia Saxena on 04/18/20 4:[address] SPOKE WITH MARY AT DR URIAS'S OFF PATIENT'S [facility] # [id number] DCP- Discharge Planning Updated by [email or web address]: Alicia Saxena on 04/18/20 1:[address] Patient Name: JACKIE BROWN Admission Status: ER Accout number: [id number] Admission Date: 04-11-2020 : 1960 Admission Diagnosis:CEREBRAL INFARCTION, UNSPECIFIED Attending: FAUSTINA Current LOS: 7 Anticipated DC Date: Planned Disposition: Inpatient Rehab Primary Insurance: MEDICAID [place] PENDING Discharge Planning Comments: CM met with patient & to complete initial dc planning assessment. CM educated patient on the CM role and verbal consent given by patient to complete assessment. Patient lives at home with his where he was independent with his care. At discharge patient would like to get rehab and feels this is a safe discharge. CM discussed availability of home health, rehab services, and medical equipment. He is [facility] approved, I have started the referral process to [facility] at [facility]. He also will need a PCP with [facility]. 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 I have estrada [facility] office and spoke to Alethea to have Mary call me back to make sure he in in the system correctly. Patients is [place] ) Patient denied known discharge needs at this time. CM will continue to follow and will assist as needed with dc plans/needs. Ventilated Rib Fitter: Alicia Saxena DCP- Discharge Planning Updated by [email or web address]: Alicia Saxena on 04/18/20 8:[address] REFERRAL SENT TO [facility] DCPIA - Discharge Planning Initial Assessment Updated by [email or web address]: Alicia Saxena on 04/18/20 2:04 pm * Is the patient Alert and Oriented? Yes * How many steps to enter\exit or inside your home? * PCP [place] * Pharmacy [facility] * Preadmission Environment Home with Family * ADLs Independent * Equipment None * List name and contact numbers for known caregivers / representatives who currently or will assist patient after discharge: IDALIA BROWN [phone] * Verbal permission to speak to the caregivers and representatives has been obtained from the patient. N/A * Community resources currently utilized None * Additional services required to return to the preadmission environment? Yes * Can the patient safely return to the preadmission environment? No * Has this patient been hospitalized within the prior 30 days at any hospital? No Coverage Notice Reviewer: [id number] - Alicia Saxena Notice Issued Date-Time: 04/18/2020 13:40 Notice Type: Patient Choice Letter Notice Delivered To: Patient Relationship to Patient: Stone Gang Sawyer Name: Delivery Method: HAND - Hand Delivered Yahaira Days: Prior Verbal Notification: Recipient Understood Notice: Yes Recipient Signature: Yes Med Rec Note Co-signed by Attending: Coverage Notice Comment: encompass Last DP export: 04/18/20 1:11 p Patient Name: JACKIE BROWN Page [phone] at 1724 All edits/amendments must be made on the electronic document DICTATION DATE: 04/18/201723 SCRAP DROP OPERATOR: ZACH 04/18/201723 RPT#: [id number] DC DATE: STATUS: ADM IN [facility] [address] [place] [address] END OF REPORT
[2020-04-18 20:00] VITALS: BP 158/87
[2020-04-19 04:00] VITALS: BP 135/83
--- NOTE | 2020-04-19 06:00 | NUR ---
I have reviewed this patient and I concur with the Shift Assessment completed by the Licensed Practical Nurse today this shift.
[2020-04-19 06:42] LABS: HEMATOCRIT 40.7 % (42.0-54.0); HEMOGLOBIN 13.5 g/dL (13.5-17.5); LYMPHOCYTES 29.7 % (15-50); MCH 29.2 pg (26.0-34.0); MCHC 33.2 g/dL (31.0-37.0); MCV 88.1 fL (80.0-100.0); MEAN PLATELET VOLUME 9.3 fL (7.4-10.4); NEUTROPHILS 61.9 % (40-80); PLATELET COUNT 416 10x3/uL (130-400); RBC 4.62 10x6/uL (4.20-6.10); RDW 13.4 % (11.5-14.5); WBC 7.6 10x3/uL (4.8-10.8)
[2020-04-19 07:03] LABS: ALBUMIN 3.2 g/dL (3.4-5.0); ALKALINE PHOSPHATASE 96 U/L (30-120); ALT (SGPT) 19 U/L (10-68); BILIRUBIN - TOTAL 0.36 mg/dL (0.2-1.3); CALC OSMOLALITY 267 mosm/kg (275-300); CALCIUM 9.1 mg/dL (8.5-10.1); CARBON DIOXIDE 24.9 mmol/L (21.0-32.0); CHLORIDE - SERUM 101 mmol/L (98-107); CREATININE - SERUM 0.9 mg/dL (0.6-1.3); GLUCOSE 99 mg/dL (74-106); MAGNESIUM - SERUM 2.3 mg/dL (1.8-2.4); PHOSPHOROUS 3.6 mg/dL (2.5-4.9); POTASSIUM - SERUM 3.5 mmol/L (3.5-5.1); PROTEIN - SERUM 7.1 g/dL (6.4-8.2); SODIUM 134 mmol/L (136-145); UREA NITROGEN 13 mg/dL (7-18); eGFR NON AFRICAN AMERICAN > 90 mL/min (90-120)
[2020-04-19 09:07] VITALS: BP 137/89
--- NOTE | 2020-04-19 09:17 | NUR ---
OT NOTE: (DOS 04/18/2020) PT COMPLETED WT BEARING TO LUE TO FACILITATE RETURN OF FUNCTION. PT COMPLETED FACE HYGIENE WITH RUE WITH SETUP. PT REQUIRED TOTAL A FOR LUE CVA POSITONING TO FACILITATE SHOULDER JOINT INTEGRITY. 628PM-652PM THANK YOU,SHASHA GAMINO
--- NOTE | 2020-04-19 09:32 | NUR ---
HE IS ALERT, TALKING, ASKING ABOUT TALKING TO THE DOCTOR. THE CALL LIGHT IS WITHIN REACH, THE BED ALARM IS ON. HE IS WAITING TO GO TO REHAB TODAY.
--- NOTE | 2020-04-19 12:18 | MORECARE ---
CASE MANAGEMENT DISCHARGE SUMMARY PATIENT: JACKIE BROWN UNIT: [id number] ADM DATE: 04/11/20 AGE: 59 : 64 SEX: M ROOM/BED: D.2206 AUTHOR: JENNYDOC PHYSICIAN: REFERRING PHYSICIAN: YUDI BUTLER MD DATE OF SERVICE: 04/19/20 Discharge Plan Patient Name: JACKIE BROWN Facility: [facility]:[place] : 1960 Planned Disposition: Inpatient Rehab Anticipated Discharge Date: Discharge Date: Expected LOS: Initial Reviewer: [email or web address] Initial Review Date: 04/11/2020 Generated: 04/19/20 1:17 pm Comments DCP- Discharge Planning Updated by [email or web address]: Alicia Saxena on 04/19/20 11:[address] patient has been accepted to [facility] will provide [facility] DCP- Discharge Planning Updated by [email or web address]: Alicia Saxena on 04/18/20 4:[address] SPOKE WITH MARY AT DR URIAS'S OFF PATIENT'S LAYLA # [id number] DCP- Discharge Planning Updated by [email or web address]: Alicia Saxena on 04/18/20 1:[address] Patient Name: JACKIE BROWN Admission Status: ER Accout number: [id number] Admission Date: 04-11-2020 : 1960 Admission Diagnosis:CEREBRAL INFARCTION, UNSPECIFIED Attending: FAUSTINA Current LOS: 7 Anticipated DC Date: Planned Disposition: Inpatient Rehab Primary Insurance: MEDICAID [place] PENDING Discharge Planning Comments: CM met with patient & to complete initial dc planning assessment. CM educated patient on the CM role and verbal consent given by patient to complete assessment. Patient lives at home with his where he was independent with his care. At discharge patient would like to get rehab and feels this is a safe discharge. CM discussed availability of home health, rehab services, and medical equipment. He is [facility] approved, I have started the referral process to Monserrat at [facility]. He also will need a PCP with [facility]. 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 I have estrada [facility] office and spoke to Alethea to have Mary call me back to make sure he in in the system correctly. Patients is Idalia ) Patient denied known discharge needs at this time. CM will continue to follow and will assist as needed with dc plans/needs. Liquefier: Alicia Saxena DCP- Discharge Planning Updated by [email or web address]: Alicia Saxena on 04/18/20 8:[address] REFERRAL SENT TO [facility] DCPIA - Discharge Planning Initial Assessment Updated by [email or web address]: Alicia Saxena on 04/18/20 2:04 pm * Is the patient Alert and Oriented? Yes * How many steps to enter\exit or inside your home? * PCP [place] * Pharmacy [facility] * Preadmission Environment Home with Family * ADLs Independent * Equipment None * List name and contact numbers for known caregivers / representatives who currently or will assist patient after discharge: IDALIA BROWN [phone] * Verbal permission to speak to the caregivers and representatives has been obtained from the patient. N/A * Community resources currently utilized None * Additional services required to return to the preadmission environment? Yes * Can the patient safely return to the preadmission environment? No * Has this patient been hospitalized within the prior 30 days at any hospital? No Coverage Notice Reviewer: [id number] - Alicia Saxena Notice Issued Date-Time: 04/18/2020 13:40 Notice Type: Patient Choice Letter Notice Delivered To: Patient Relationship to Patient: Hospice Clinical Marketer Name: Delivery Method: HAND - Hand Delivered Yahaira Days: Prior Verbal Notification: Recipient Understood Notice: Yes Recipient Signature: Yes Med Rec Note Co-signed by Attending: Coverage Notice Comment: encompass Last DP export: 04/18/20 4:24 p Patient Name: JACKIE BROWN Page 17066 at 1218 All edits/amendments must be made on the electronic document DICTATION DATE: 04/19/201216 FOUNTAIN SUPERVISOR: ZACH 04/19/201216 RPT#: [id number] DC DATE: STATUS: ADM IN [facility] [address] [place] [address] END OF REPORT
--- NOTE | 2020-04-19 12:27 | MORECARE ---
CASE MANAGEMENT DISCHARGE SUMMARY PATIENT: JACKIE BROWN UNIT: [id number] ADM DATE: 04/11/20 AGE: 59 : 64 SEX: M ROOM/BED: D.2206 AUTHOR: JENNYDOC PHYSICIAN: REFERRING PHYSICIAN: YUDI BUTLER MD DATE OF SERVICE: 04/19/20 Discharge Plan Patient Name: JACKIE BROWN Facility: [facility]:[place] : 1960 Planned Disposition: Inpatient Rehab Anticipated Discharge Date: Discharge Date: Expected LOS: Initial Reviewer: [id number] Initial Review Date: 04/11/2020 Generated: 04/19/20 1:26 pm Comments DCP- Discharge Planning Updated by [email or web address]: Alicia Saxena on 04/19/20 11:[address] patient has been accepted to [facility] will provide [facility] DCP- Discharge Planning Updated by [email or web address]: Alicia Saxena on 04/18/20 4:[address] SPOKE WITH MARY AT DR URIAS'S OFF PATIENT'S LAYLA # [id number] DCP- Discharge Planning Updated by [email or web address]: Alicia Saxena on 04/18/20 1:[address] Patient Name: JACKIE BROWN Admission Status: ER Accout number: [id number] Admission Date: 04-11-2020 : 1960 Admission Diagnosis:CEREBRAL INFARCTION, UNSPECIFIED Attending: FAUSTINA Current LOS: 7 Anticipated DC Date: Planned Disposition: Inpatient Rehab Primary Insurance: MEDICAID [place] PENDING Discharge Planning Comments: CM met with patient & to complete initial dc planning assessment. CM educated patient on the CM role and verbal consent given by patient to complete assessment. Patient lives at home with his where he was independent with his care. At discharge patient would like to get rehab and feels this is a safe discharge. CM discussed availability of home health, rehab services, and medical equipment. He is [facility] approved, I have started the referral process to Monserrat at [facility]. He also will need a PCP with [facility]. 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 I have estrada [facility] office and spoke to Alethea to have Mary call me back to make sure he in in the system correctly. Patients is Idalia ) Patient denied known discharge needs at this time. CM will continue to follow and will assist as needed with dc plans/needs. Acoustic Engineer: Alicia Saxena DCP- Discharge Planning Updated by [email or web address]: Alicia Saxena on 04/18/20 8:[address] REFERRAL SENT TO [facility] DCPIA - Discharge Planning Initial Assessment Updated by [id number]: Alicia Saxena on 04/18/20 2:04 pm * Is the patient Alert and Oriented? Yes * How many steps to enter\exit or inside your home? * PCP [place] * Pharmacy [facility] * Preadmission Environment Home with Family * ADLs Independent * Equipment None * List name and contact numbers for known caregivers / representatives who currently or will assist patient after discharge: IDALIA BROWN [phone] * Verbal permission to speak to the caregivers and representatives has been obtained from the patient. N/A * Community resources currently utilized None * Additional services required to return to the preadmission environment? Yes * Can the patient safely return to the preadmission environment? No * Has this patient been hospitalized within the prior 30 days at any hospital? No Coverage Notice Reviewer: [id number] - Alicia Saxena Notice Issued Date-Time: 04/18/2020 13:40 Notice Type: Patient Choice Letter Notice Delivered To: Patient Relationship to Patient: Recreation Instructor Name: Delivery Method: HAND - Hand Delivered Yahaira Days: Prior Verbal Notification: Recipient Understood Notice: Yes Recipient Signature: Yes Med Rec Note Co-signed by Attending: Coverage Notice Comment: encompass Last DP export: 04/19/20 11:18 a Patient Name: JACKIE BROWN Page [id number] at 1227 All edits/amendments must be made on the electronic document DICTATION DATE: 04/19/206 ATTENDANT HONOR BAR: ZACH 04/19/206 RPT#: [id number] DC DATE: STATUS: ADM IN [facility] [address] [place] [address] END OF REPORT
[2020-04-19 12:50] VITALS: BP 133/88
--- NOTE | 2020-04-19 15:26 | NUR ---
OT NOTE: PT PERFORMED BED MOB WITH MOD ASSIST; STATIC SITTING ON EOB WITH CGA; WT BEARING ACT THROUGH L UE; CONTINUED TO TALK ABOUT HOW HE SHOULD HAVE ALREADY BEEN IN REHAB.. EDUCATED PT ON SROM EXS ABIGAIL GONZALEZ, OTR/L [phone]
--- NOTE | 2020-04-19 16:30 | NUR ---
REPORT CALLED TO HARPAL VELOZ AT [facility].
--- NOTE | 2020-04-19 16:44 | NUR ---
OT NOTE: PT COMPLETED LUE PROM AND POSITIONING TO FACILITATE RETURN OF FUNCTION WHILE PROVIDING JOINT STABILITY.PT COMPLETED FACE AND HAND HYGIENE WITH SETUP USING RUE. [id number] THANK YOU,SHASHA GAMINO
--- NOTE | 2020-04-19 17:55 | NUR ---
GONE OVER PAPER WORK, QUESTIONS ANSWERED. GOING TO [facility]. THEIR CASH APPLICATIONS MANAGER IS HERE TO GET HIM VIA WHEELCHAIR.
--- NOTE | 2020-04-20 01:31 | MORECARE ---
CASE MANAGEMENT DISCHARGE SUMMARY PATIENT: JACKIE BROWN UNIT: [id number] ADM DATE: 04/11/20 AGE: 59 : 64 SEX: M ROOM/BED: D.2206 AUTHOR: JENNY,DOC PHYSICIAN: REFERRING PHYSICIAN: YUDI BUTLER MD DATE OF SERVICE: 04/20/20 Discharge Plan Patient Name: JACKIE BROWN Facility: [facility]:[place] : 1960 Planned Disposition: Inpatient Rehab Anticipated Discharge Date: Discharge Date: 04/19/2020 Expected LOS: Initial Reviewer: [id number] Initial Review Date: 04/11/2020 Generated: 04/20/20 2:31 am Comments DCP- Discharge Planning Updated by [email or web address]: Alicia Saxena on 04/19/20 11:[address] patient has been accepted to [facility] inpatient rehab with [facility] they will provide transportation DCP- Discharge Planning Updated by [email or web address]: Alicia Saxena on 04/18/20 4:[address] SPOKE WITH MARY AT DR URIAS'S OFF PATIENT'S LAYLA # [id number] DCP- Discharge Planning Updated by [id number]: Alicia Saxena on 04/18/20 1:[address] Patient Name: JACKIE BROWN Admission Status: ER Accout number: [id number] Admission Date: 04-11-2020 : 1960 Admission Diagnosis:CEREBRAL INFARCTION, UNSPECIFIED Attending: FAUSTINA Current LOS: 7 Anticipated DC Date: Planned Disposition: Inpatient Rehab Primary Insurance: MEDICAID [place] PENDING Discharge Planning Comments: CM met with patient & to complete initial dc planning assessment. CM educated patient on the CM role and verbal consent given by patient to complete assessment. Patient lives at home with his where he was independent with his care. At discharge patient would like to get rehab and feels this is a safe discharge. CM discussed availability of home health, rehab services, and medical equipment. He is [facility] approved, I have started the referral process to Monserrat at [facility]. He also will need a PCP with [facility]. 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 I have estrada [facility] office and spoke to Alethea to have Mary call me back to make sure he in in the system correctly. Patients is Idalia ) Patient denied known discharge needs at this time. CM will continue to follow and will assist as needed with dc plans/needs. Propagation Manager: Alicia Saxena DCP- Discharge Planning Updated by [email or web address]: Alicia Saxena on 04/18/20 8:[address] REFERRAL SENT TO [facility] DCPIA - Discharge Planning Initial Assessment Updated by [id number]: Alicia Saxena on 04/18/20 2:04 pm * Is the patient Alert and Oriented? Yes * How many steps to enter\exit or inside your home? * PCP [place] * Pharmacy [facility] * Preadmission Environment Home with Family * ADLs Independent * Equipment None * List name and contact numbers for known caregivers / representatives who currently or will assist patient after discharge: IDAILA BROWN [phone] * Verbal permission to speak to the caregivers and representatives has been obtained from the patient. N/A * Community resources currently utilized None * Additional services required to return to the preadmission environment? Yes * Can the patient safely return to the preadmission environment? No * Has this patient been hospitalized within the prior 30 days at any hospital? No Coverage Notice Reviewer: [id number] - Alicia Saxena Notice Issued Date-Time: 04/18/2020 13:40 Notice Type: Patient Choice Letter Notice Delivered To: Patient Relationship to Patient: Narcotics Agent Name: Delivery Method: HAND - Hand Delivered Yahaira Days: Prior Verbal Notification: Recipient Understood Notice: Yes Recipient Signature: Yes Med Rec Note Co-signed by Attending: Coverage Notice Comment: encompass Last DP export: 04/19/20 11:27 a Patient Name: JACKIE BROWN Page 19663 at 0131 All edits/amendments must be made on the electronic document DICTATION DATE: 04/20/20130 GOVERNMENT AFFAIRS FELLOW: ZACH 04/20/20130 RPT#: [id number] DC DATE:04/19/20 STATUS: DIS IN [facility] [address] [place] [address] END OF REPORT
== END 2020-04-19 17:56 | DRG 64 ==
LOC: D.ER 14:37 → D.MS 16:41 → D.CVICU 16:41 → D.ICU 16:41 → D.MS 04-15 06:41
PROVIDERS: Family Medicine; Family Medicine Adult Medicine; ADMIT Family Medicine; ATTEND Family Medicine
DX: I63.9 Cerebral infarction, unspecified (principal); G93.6 Cerebral edema; I69.354 Hemiplegia and hemiparesis following cerebral infarction affecting left non-dominant side; I16.1 Hypertensive emergency; R29.810 Facial weakness; R13.10 Dysphagia, unspecified; F31.9 Bipolar disorder, unspecified; G89.29 Other chronic pain; G47.00 Insomnia, unspecified

== ENCOUNTER 2020-05-25 15:12 | Emergency (ER) | payer MEDICAID ==
[~2020-05-25] VITALS: Ht 175.3 cm; Wt 77.7 kg
[~2020-05-25 15:12] MED LIST: AMBIEN5 MG PO; DOLOPHINE HCL5 MG PO; KLONOPIN1 MG PO; OXYCONTIN10 MG PO; PAXIL20 MG PO; RESTORIL15 MG PO; ZANAFLEX4 MG PO
[2020-05-25 15:20] VITALS: Ht 175.3 cm; Wt 77.7 kg
[2020-05-25 15:56] LABS: BILIRUBIN NEGATIVE (NEGATIVE); GLUCOSE NEGATIVE (NEGATIVE); KETONE NEGATIVE (NEGATIVE); NITRITE NEGATIVE (NEGATIVE); UROBILINOGEN NORMAL (NORMAL)
[2020-05-25 16:24] LABS: BASOPHILS 0.2 % (0-2); EOSINOPHILS 2.7 % (0-7); HEMATOCRIT 41.4 % (42.0-54.0); HEMOGLOBIN 13.6 g/dL (13.5-17.5); IMMATURE GRANULOCYTES 0.3 % (0-5); LYMPHOCYTES 31.2 % (15-50); MCH 29.5 pg (26.0-34.0); MCHC 32.9 g/dL (31.0-37.0); MCV 89.8 fL (80.0-100.0); MEAN PLATELET VOLUME 9.3 fL (7.4-10.4); MONOCYTES 6.6 % (2-11); PLATELET COUNT 219 10x3/uL (130-400); RBC 4.61 10x6/uL (4.20-6.10); RDW 12.6 % (11.5-14.5); WBC 5.9 10x3/uL (4.8-10.8)
[2020-05-25 16:28] LABS: CALC OSMOLALITY 269 mosm/kg (275-300); CALCIUM 8.3 mg/dL (8.5-10.1); CARBON DIOXIDE 27.4 mmol/L (21.0-32.0); CHLORIDE - SERUM 102 mmol/L (98-107); GLUCOSE 110 mg/dL (74-106); POTASSIUM - SERUM 3.8 mmol/L (3.5-5.1); SODIUM 134 mmol/L (136-145); UREA NITROGEN 14 mg/dL (7-18); eGFR NON AFRICAN AMERICAN 82 mL/min (90-120)
[2020-05-25 16:33] LABS: ALKALINE PHOSPHATASE 85 U/L (30-120); ALT (SGPT) 14 U/L (10-68); BILIRUBIN - TOTAL 0.13 mg/dL (0.2-1.3)
[2020-05-25 17:30] VITALS: BP 110/77
== END 2020-05-25 17:30 | disposition home or self-care (01) ==
LOC: D.ER 15:12
PROVIDERS: Family Medicine
DX: R53.1 Weakness (principal); M54.5 Low back pain; R73.9 Hyperglycemia, unspecified; E83.51 Hypocalcemia; E87.1 Hypo-osmolality and hyponatremia; Z86.73 Personal history of transient ischemic attack (TIA), and cerebral infarction without residual deficits; I10 Essential (primary) hypertension

== ENCOUNTER 2020-07-16 14:16 | Emergency (ER) | payer MEDICAID ==
[~2020-07-16] VITALS: Ht 175.3 cm; Wt 84.1 kg
[2020-07-16 14:19] VITALS: Ht 175.3 cm; Wt 84.1 kg
[2020-07-16 15:07] LABS: BASOPHILS 0.2 % (0-2); EOSINOPHILS 4.6 % (0-7); HEMATOCRIT 40.4 % (42.0-54.0); HEMOGLOBIN 13.2 g/dL (13.5-17.5); IMMATURE GRANULOCYTES 0.4 % (0-5); LYMPHOCYTES 35.7 % (15-50); MCH 28.8 pg (26.0-34.0); MCHC 32.7 g/dL (31.0-37.0); MONOCYTES 8.3 % (2-11); NEUTROPHILS 50.8 % (40-80); PLATELET COUNT 232 10x3/uL (130-400); RBC 4.59 10x6/uL (4.20-6.10); RDW 13.6 % (11.5-14.5); WBC 5.7 10x3/uL (4.8-10.8)
[2020-07-16 15:26] LABS: CALC OSMOLALITY 271 mosm/kg (275-300); CALCIUM 8.9 mg/dL (8.5-10.1); CARBON DIOXIDE 29.5 mmol/L (21.0-32.0); CHLORIDE - SERUM 102 mmol/L (98-107); GLUCOSE 92 mg/dL (74-106); POTASSIUM - SERUM 4.3 mmol/L (3.5-5.1); SODIUM 136 mmol/L (136-145); UREA NITROGEN 13 mg/dL (7-18); eGFR NON AFRICAN AMERICAN 81 mL/min (90-120)
[2020-07-16 15:43] LABS: ALBUMIN 3.1 g/dL (3.4-5.0); ALKALINE PHOSPHATASE 84 U/L (30-120); ALT (SGPT) 11 U/L (10-68); BILIRUBIN - TOTAL 0.21 mg/dL (0.2-1.3); CKMB 0.5 U/L (0.0-3.6); CREATINE KINASE 75 UL (21-232); MAGNESIUM - SERUM 1.9 mg/dL (1.8-2.4); PROTEIN - SERUM 6.4 g/dL (6.4-8.2)
[2020-07-16 15:45] LABS: TROPONIN-I < 0.017 ng/mL (0.000-0.060)
[2020-07-16 15:50] LABS: APTT 29.6 SECONDS (22.8-39.4); INR 1.03 (0.85-1.17); PROTIME 13.5 SECONDS (11.6-15.0)
[2020-07-16 16:55] LABS: BILIRUBIN NEGATIVE (NEGATIVE); KETONE NEGATIVE (NEGATIVE); NITRITE NEGATIVE (NEGATIVE); UROBILINOGEN NORMAL mg/dL (< 2)
[2020-07-16 17:11] LABS: UDS - AMPHET NEGATIVE QUAL (NEGATIVE); UDS - BARB NEGATIVE QUAL (NEGATIVE); UDS - BENZO NEGATIVE QUAL (NEGATIVE); UDS - COCAINE NEGATIVE QUAL (NEGATIVE); UDS - OPIATE NEGATIVE QUAL (NEGATIVE); UDS - PCP NEGATIVE QUAL (NEGATIVE); UDS - THC NEGATIVE QUAL (NEGATIVE)
[2020-07-16 20:18] VITALS: BP 128/66
== END 2020-07-16 18:00 | disposition home or self-care (01) ==
LOC: D.ER 14:16
PROVIDERS: Family Medicine
DX: R41.82 Altered mental status, unspecified (principal); R44.1 Visual hallucinations; I10 Essential (primary) hypertension; Z86.73 Personal history of transient ischemic attack (TIA), and cerebral infarction without residual deficits

== ENCOUNTER 2021-03-04 18:59 | Emergency (ER) | payer MEDICAID ==
[~2021-03-04] VITALS: Ht 175.3 cm; Wt 74.8 kg
[2021-03-04 19:08] VITALS: Ht 175.3 cm; Wt 74.8 kg
[2021-03-04] MEDS ORDERED: [UNRECOGNIZED DRUG - REMARK] (19:10)
[2021-03-04 19:33] LABS: EOSINOPHILS 0.5 % (0-7); HEMATOCRIT 40.1 % (42.0-54.0); HEMOGLOBIN 13.7 g/dL (13.5-17.5); LYMPHOCYTES 30.2 % (15-50); MCH 29.4 pg (26.0-34.0); MCHC 34.1 g/dL (31.0-37.0); MCV 86.3 fL (80.0-100.0); MEAN PLATELET VOLUME 7.5 fL (7.4-10.4); MONOCYTES 6.8 % (2-11); NEUTROPHILS 61.5 % (40-80); RBC 4.65 10x6/uL (4.20-6.10); RDW 14.5 % (11.5-14.5); WBC 8.2 10x3/uL (4.8-10.8)
[2021-03-04 19:40] LABS: PLATELET COUNT 407 10x3/uL (130-400)
[2021-03-04 19:57] LABS: ALBUMIN 3.8 g/dL (3.4-5.0); BILIRUBIN - TOTAL 0.19 mg/dL (0.2-1.3); CALCIUM 8.5 mg/dL (8.5-10.1); CARBON DIOXIDE 27.1 mmol/L (21.0-32.0); CREATININE - SERUM 1.1 mg/dL (0.6-1.3); PROTEIN - SERUM 6.9 g/dL (6.4-8.2)
[2021-03-04 19:58] LABS: ANION GAP 14.5 mmol/L (8-16)
[2021-03-04 19:59] LABS: POTASSIUM - SERUM 2.6 mmol/L (3.5-5.1)
--- NOTE | 2021-03-04 20:16 | NUR ---
DR TOLEDO NOTIFIED AND SITTER ORDERED. SITTER AT BEDSIDE. NOTIFIED CHARGE NURSE AND ATTENDING IN REGARDS TO ASSESSMENT FINDINGS. RESOURCES GIVEN TO PT AND SAFETY PLAN INITIATED.
[2021-03-04 22:01] LABS: BILIRUBIN NEGATIVE (NEGATIVE); KETONE NEGATIVE (NEGATIVE); NITRITE NEGATIVE (NEGATIVE); UROBILINOGEN NORMAL mg/dL (< 2)
[2021-03-04 22:11] LABS: UDS - AMPHET NEGATIVE QUAL (NEGATIVE); UDS - BARB NEGATIVE QUAL (NEGATIVE); UDS - BENZO POSITIVE QUAL (NEGATIVE); UDS - COCAINE NEGATIVE QUAL (NEGATIVE); UDS - OPIATE NEGATIVE QUAL (NEGATIVE); UDS - PCP NEGATIVE QUAL (NEGATIVE); UDS - THC POSITIVE QUAL (NEGATIVE)
[2021-03-04 23:40] LABS: CALC OSMOLALITY 287 mosm/kg (275-300); CALCIUM 8.3 mg/dL (8.5-10.1); CARBON DIOXIDE 28.4 mmol/L (21.0-32.0); CHLORIDE - SERUM 107 mmol/L (98-107); GLUCOSE 135 mg/dL (74-106); SODIUM 143 mmol/L (136-145); UREA NITROGEN 16 mg/dL (7-18); eGFR NON AFRICAN AMERICAN 81 mL/min (90-120)
[2021-03-04 23:49] LABS: POTASSIUM - SERUM 3.1 mmol/L (3.5-5.1)
[2021-03-04 23:49] LABS: SARS-CoV-2 ANTIGEN NEGATIVE- SARS-COV-2 (NEGATIVE)
[2021-03-05 06:25] VITALS: BP 148/86
== END 2021-03-05 07:57 ==
LOC: D.ER 18:59
PROVIDERS: Family Medicine
DX: R45.851 Suicidal ideations (principal); Z86.73 Personal history of transient ischemic attack (TIA), and cerebral infarction without residual deficits; I10 Essential (primary) hypertension